=== PATIENT | female | born 1980 | race Caucasian/White ===

== ENCOUNTER 2018-12-10 05:57 | Inpatient (IN) ==
[2018-12-10] MEDS ORDERED: PEPCID IV PRN (05:59)
[2018-12-10] MEDS ORDERED: ZOFRAN IV PRN (05:59)
[2018-12-10] MEDS ORDERED: STADOL IV PRN (05:59)
[2018-12-10] MEDS ORDERED: PEPCID PO ONE (05:59)
[2018-12-10] MEDS ORDERED: KEFZOL 1 GM/D5W 1 GM/50 ML IVPB IV PRN (05:59)
[2018-12-10] MEDS ORDERED: REGLAN PO ONE (05:59)
[2018-12-10] MEDS ORDERED: TYLENOL PO PRN (05:59)
[2018-12-10] MEDS ORDERED: PEPCID PO PRN (05:59)
[2018-12-10] MEDS ORDERED: SODIUM CHLORIDE 0.9% INJ SCH (06:00)
[2018-12-10] MEDS ORDERED: PITOCIN 10 UNITS/NS 1,000 ML IV SCH (06:00)
[2018-12-10] MEDS ORDERED: AMPICILLIN 2 GM/NS 2 GM/100 ML IVPB IV ONE (06:03)
[2018-12-10] MEDS ORDERED: PITOCIN 30 UNITS/NS 30 UNIT/500 ML IV.SOLN IV SCH ×2 (06:15→16:00)
[2018-12-10] MEDS: LR 1,000 ML IV SCH ×3 (06:34→08:48)
[2018-12-10 07:27] LABS: BASO# 0.04 X1000 (0.0-0.2); BASO% 0.4 % (0.0-0.8); EOS# 0.09 X1000 (0.0-0.7); EOS% 0.8 % (0.0-10.0); HEMATOCRIT 31.5 % (37.0-47.0); HEMOGLOBIN 10.6 g/dL (12.0-16.0); IMM GRAN# 0.25 X1000 (0.0-0.04); IMM GRAN% 2.3 % (0.0-0.5); LYMPH# 2.63 X1000 (1.2-3.4); LYMPH% 24.4 % (20.5-51.1); MCH 29.2 PG (27-31); MCHC 33.7 g/dL (33-37); MCV 86.8 FL (81-99); MONO# 0.72 X1000 (0.11-0.59); MONO% 6.7 % (1.7-9.3); MPV 10.5 FL (7.4-10.4); NEUT# 7.03 X1000 (1.4-6.5); NEUT% 65.4 % (42.2-75.2); PLT 288 X1000 (130-400); RBC 3.63 XMIL (4.2-5.4); RDW 14.1 % (11.5-14.5); WBC 10.76 X1000 (4.8-10.8)
[2018-12-10 07:50] LABS: URINE SOURCE VOIDED
[2018-12-10 07:57] LABS: BILIRUBIN URINE NEGATIVE (NEGATIVE); BLOOD URINE NEGATIVE (NEGATIVE); GLUCOSE URINE NEGATIVE (NEGATIVE); KETONE URINE TRACE mg/dL (NEGATIVE); LEUKOCYTES URINE 2+ (NEGATIVE); NITRITE URINE NEGATIVE (NEGATIVE); PROTEIN URINE TRACE mg/dL (NEGATIVE); SP GRAVITY URINE 1.015; UROBILINOGEN URINE 1 mg/dL
[2018-12-10 07:58] LABS: CLARITY CLEAR (CLEAR); COLOR YELLOW
[2018-12-10] MEDS ORDERED: FENTANYL-BUPIV-NS 2 MCG-0.1% 200 ML EPIDURAL PRN (08:02)
[2018-12-10 08:05] LABS: UR AMPHETAMINES QUAL NONE DETECTED (NONE DETECT); UR BARBITUATES QUAL NONE DETECTED (NONE DETECT); UR BENZODIAZEPIN QUAL NONE DETECTED (NONE DETECT); UR CANNABINOIDS QUAL NONE DETECTED (NONE DETECT); UR COCAINE QUAL NONE DETECTED (NONE DETECT); UR METHADONE QUAL NONE DETECTED (NONE DETECT); UR METHAMPHETAMINE QUAL NONE DETECTED (NONE DETECT); UR OPIATES QUAL NONE DETECTED (NONE DETECT); UR OXYCODONE QUAL NONE DETECTED (NONE DETECT); UR PCP QUAL PRESUMPTIVE POSITIVE (NONE DETECT); UR PROPOXYPHENE QUAL NONE DETECTED (NONE DETECT); UR TCA QUAL NONE DETECTED (NONE DETECT)
[2018-12-10] MEDS ORDERED: NAROPIN 0.2% INJ ONE (08:15)
[2018-12-10] MEDS: AMPICILLIN 1 GM/NS 1 GM/50 ML IVPB IV SCH ×2 (10:35→14:32)
--- NOTE | 2018-12-10 11:19 | HISTORY AND PHYSICAL ---
HISTORY OF PRESENT ILLNESS: Patient is a 38-year-old white female G5, P2, A2 who is admitted today for induction of labor at 39 and 2/7ths weeks. care is significant for rubella non immune, group B strep culture positive on the urine early in , and restless legs syndrome during necessitating treatment with [place]. Also, patient has an IUD in place. PAST MEDICAL HISTORY: Unremarkable. PAST SURGICAL HISTORY: Tonsillectomy and D and C x2. PAST OB HISTORY: G5, P2. Spontaneous vaginal delivery x2. Spontaneous AB x1. Elective AB x1. DIGITAL DATA ANALYST HISTORY: Menarche at age 16. FAMILY HISTORY: Significant for heart disease. REVIEW OF SYSTEMS: All systems reviewed and noncontributory. SOCIAL HISTORY: Tobacco use of 1 pack per day. Alcohol use none. ALLERGIES: No known drug allergies. MEDICATIONS: vitamins and [place] 5 as needed for restless leg pain. PHYSICAL EXAMINATION: VITAL SIGNS: Height 5 feet 2 inches. Weight 197 pounds. Temperature 97.6 degrees, blood pressure 109/68, pulse of 91, and respirations 20. heart rate 150s with positive accelerations. HEENT: Pupils equal, round, and reactive to light and accommodation. Extraocular movements intact. Oropharynx clear. NECK: Supple. No thyromegaly. LUNGS: Clear to auscultation. HEART: Regular rate and rhythm. ABDOMEN: Gravid and nontender. PELVIC: On pelvic exam, cervix was dilated 2 cm, 60% effaced, -2 station. Vertex presentation noted. EXTREMITIES: No clubbing, cyanosis, or edema noted. DTRs were 1+ bilaterally. ASSESSMENT AND PLAN: 39 and 2/7ths weeks gestation with favorable cervix for induction of labor. Patient's rubella status is nonimmune and will receive vaccination after delivery. Group B strep positive on urine cultures. She will be treated with prophylactic antibiotics during labor course, and also will retrieve IUD after delivery. cc: Jovan Thorne III, MD
[2018-12-10] MEDS ORDERED: XYLOCAINE-MPF 1% INJ PRN ×2 (14:06→15:46)
[2018-12-10] MEDS ORDERED: MINERAL OIL ONE (14:08)
[2018-12-10] MEDS ORDERED: HYDROXYZINE IM PRN (15:46)
[2018-12-10] MEDS ORDERED: BENADRYL IV PRN (15:46)
[2018-12-10] MEDS ORDERED: ATARAX PO PRN (15:46)
[2018-12-10] MEDS ORDERED: AMBIEN PO PRN (15:46)
[2018-12-10] MEDS ORDERED: PERI MEDS (DERMOPLAST/NUPERCAINAL/TUCKS) MISC PRN (15:46)
[2018-12-10] MEDS ORDERED: CYTOTEC PO PRN (15:46)
[2018-12-10] MEDS ORDERED: BOOSTRIX VACCINE IM ONE (15:46)
[2018-12-10] MEDS ORDERED: MINERAL OIL PO PRN (15:46)
[2018-12-10] MEDS ORDERED: PITOCIN IM PRN (15:46)
[2018-12-10] MEDS ORDERED: BENADRYL PO PRN (15:46)
[2018-12-10] MEDS ORDERED: M-M-R II VACCINE SUBQ ONE (15:46)
[2018-12-10] MEDS ORDERED: PITOCIN 20 UNITS/NS 20 UNITS/1,000 ML IV.SOLN IV SCH (16:00)
[2018-12-10] MEDS: MOTRIN PO PRN (17:26)
--- NOTE | 2018-12-10 19:37 | OPERATIVE NOTE ---
PROCEDURE DATE: 12/10/2018 DELIVERY NOTE: Patient progressed to complete and pushing, and had spontaneous vaginal delivery of a female infant, 7 pounds 5 ounces, with Apgars of 9 and 9 at 1527 on 12/10/2018, over a 1st degree right side vaginal sidewall laceration. Cord blood sample was obtained at this time. Placenta was then delivered intact with a 3 vessel cord. A Mirena IUD was then removed from the uterus after uterine exploration. The right vaginal sidewall laceration repaired with 3-0 chromic in running fashion. Estimated blood loss was 150 mL. Anesthesia was epidural. All counts were correct x3. cc: Jovan Thorne III, MD
[2018-12-10] MEDS: PERICOLACE PO SCH (21:28)
[2018-12-10] MEDS: NORCO-10 PO PRN (23:50)
[2018-12-11 06:16] LABS: HEMATOCRIT 29.8 % (37.0-47.0); HEMOGLOBIN 9.8 g/dL (12.0-16.0); LYMPH% 27.1 % (20.5-51.1); MCH 28.7 PG (27-31); MCHC 32.9 g/dL (33-37); MCV 87.4 FL (81-99); MONO% 8.7 % (1.7-9.3); MPV 10.5 FL (7.4-10.4); NEUT% 60.5 % (42.2-75.2); PLT 245 X1000 (130-400); RBC 3.41 XMIL (4.2-5.4); RDW 14.3 % (11.5-14.5); WBC 10.44 X1000 (4.8-10.8)
[2018-12-11 06:17] LABS: BASO# 0.04 X1000 (0.0-0.2); BASO% 0.4 % (0.0-0.8); EOS# 0.15 X1000 (0.0-0.7); EOS% 1.4 % (0.0-10.0); IMM GRAN% 1.9 % (0.0-0.5); LYMPH# 2.83 X1000 (1.2-3.4); MONO# 0.91 X1000 (0.11-0.59); NEUT# 6.31 X1000 (1.4-6.5)
[2018-12-11] MEDS: MOTRIN PO PRN ×2 (06:32→13:48)
[2018-12-11] MEDS: NORCO-10 PO PRN (06:32)
--- NOTE | 2018-12-11 07:16 | OB/GYN PROGRESS NOTE ---
Progress Note OB - . Patient Problems: Current Active Problems Problem Status Onset (spontaneous vaginal delivery) Acute Elective induction of labor planned Acute OB Progress Note: Vital Signs - 24 hr 12/10/18 07:20 12/10/18 10:56 12/10/18 14:41 Temperature 97.6 F 97.8 F 98.4 F Pulse Rate 91 H 92 H 82 Respiratory Rate 20 20 20 Blood Pressure 109/60 111/58 112/57 Blood Pressure [Left Arm] O2 Sat by Pulse Oximetry 96 98 98 12/10/18 15:45 12/10/18 15:55 12/10/18 16:05 Temperature 98.1 F Pulse Rate 82 81 87 Respiratory Rate 20 20 20 Blood Pressure Blood Pressure [Left Arm] 135/75 112/60 112/60 O2 Sat by Pulse Oximetry 95 98 99 12/10/18 16:15 12/10/18 16:25 12/10/18 16:35 Temperature Pulse Rate 80 86 74 Respiratory Rate 20 20 20 Blood Pressure Blood Pressure [Left Arm] 108/68 104/67 111/68 O2 Sat by Pulse Oximetry 100 98 99 12/10/18 16:45 12/10/18 17:15 12/10/18 19:39 Temperature 97.2 F L 97.0 F L Pulse Rate 72 77 81 Respiratory Rate 20 20 20 Blood Pressure 121/59 120/65 106/51 Blood Pressure [Left Arm] 121/59 O2 Sat by Pulse Oximetry 99 99 97 12/10/18 23:44 12/11/18 04:23 Temperature 97.2 F L 96.8 F L Pulse Rate 73 Respiratory Rate 20 18 Blood Pressure 126/64 104/56 Blood Pressure [Left Arm] O2 Sat by Pulse Oximetry 97 98 Laboratory Results - last 24 hr 12/10/18 12/10/18 12/10/18 06:34 06:34 07:25 WBC 10.76 RBC 3.63 L Hgb 10.6 L Hct 31.5 L MCV 86.8 MCH 29.2 MCHC 33.7 RDW Std Deviation 14.1 Plt Count 288 MPV 10.5 H Immature Gran % (Auto) 2.3 H Neut % (Auto) 65.4 Lymph % (Auto) 24.4 [place] % (Auto) 6.7 Eos % (Auto) 0.8 Baso % (Auto) 0.4 Immature Gran # (Auto) 0.25 H Neut # (Auto) 7.03 H Lymph # (Auto) 2.63 [place] # (Auto) 0.72 H Eos # (Auto) 0.09 Baso # (Auto) 0.04 Urine Source Urine Color Urine Clarity Urine pH Ur Specific [place] Urine Protein Urine Ketones Urine Blood Urine Nitrite Urine Bilirubin Urine Urobilinogen Urine WBC Urine Glucose Urine Opiates Screen NONE DETECTED Ur Oxycodone Screen NONE DETECTED Urine Methadone Screen NONE DETECTED U Propoxyphene Qual NONE DETECTED Ur Barbituates Screen NONE DETECTED Ur Tricyclics Screen NONE DETECTED Ur Phencyclidine Scrn PRESUMPTIVE POSITIVE A Ur Amphetamines Screen NONE DETECTED U Methamphetamines Scrn NONE DETECTED U Benzodiazepines Scrn NONE DETECTED Urine Cocaine Screen NONE DETECTED U Cannabinoids Screen NONE DETECTED RPR NON-REACTIVE 12/10/18 12/11/18 07:25 05:38 WBC 10.44 RBC 3.41 L Hgb 9.8 L Hct 29.8 L MCV 87.4 MCH 28.7 MCHC 32.9 L RDW Std Deviation 14.3 Plt Count 245 MPV 10.5 H Immature Gran % (Auto) 1.9 H Neut % (Auto) 60.5 Lymph % (Auto) 27.1 [place] % (Auto) 8.7 Eos % (Auto) 1.4 Baso % (Auto) 0.4 Immature Gran # (Auto) 0.20 H Neut # (Auto) 6.31 Lymph # (Auto) 2.83 [place] # (Auto) 0.91 H Eos # (Auto) 0.15 Baso # (Auto) 0.04 Urine Source VOIDED Urine Color YELLOW Urine Clarity CLEAR Urine pH 7.0 Ur Specific [place] 1.015 Urine Protein TRACE A Urine Ketones TRACE Urine Blood NEGATIVE Urine Nitrite NEGATIVE Urine Bilirubin NEGATIVE Urine Urobilinogen 1 Urine WBC 2+ A Urine Glucose NEGATIVE Urine Opiates Screen Ur Oxycodone Screen Urine Methadone Screen U Propoxyphene Qual Ur Barbituates Screen Ur Tricyclics Screen Ur Phencyclidine Scrn Ur Amphetamines Screen U Methamphetamines Scrn U Benzodiazepines Scrn Urine Cocaine Screen U Cannabinoids Screen RPR Pt doing well Pain controlled minimal lochia bottlefeeding desires an IUD Vitals as above Gen: AAOx3 NAD CV: RRR no g/m/r Lungs: CTAB no w/r/r Abd: +BS soft Nt/ND fundus firm at u-1 Ext: no c/c/e Labs H/H 9.8/29.8 A: PPD#1 s/p P: Cont pp mgmt
[2018-12-11] MEDS: NORCO-5 PO PRN ×3 (12:14→20:22)
[2018-12-11] MEDS: PERICOLACE PO SCH (20:22)
[2018-12-12] MEDS: NORCO-5 PO PRN ×3 (02:08→14:32)
[2018-12-12] MEDS: MOTRIN PO PRN ×2 (02:08→14:32)
[2018-12-12 07:46] VITALS: BP 128/79
[2018-12-12] MEDS ORDERED: FERROUS SULFATE PO SCH (09:00)
[2018-12-12] MEDS ORDERED: PNEUMOVAX 23 IM ONE (09:15)
--- NOTE | 2018-12-12 09:37 | OB/GYN PROGRESS NOTE ---
Progress Note OB - . Patient Problems: Current Active Problems Problem Status Onset (spontaneous vaginal delivery) Acute Elective induction of labor planned Acute OB Progress Note: Vital Signs - 24 hr 12/11/18 12:21 12/11/18 15:46 12/11/18 20:13 Temperature 96.7 F L 96.9 F L 96.6 F L Pulse Rate 73 81 89 Respiratory Rate 18 18 20 Blood Pressure 128/80 121/62 125/69 O2 Sat by Pulse Oximetry 100 99 97 12/12/18 02:02 12/12/18 07:25 Temperature 96.7 F L 97.8 F Pulse Rate 79 64 Respiratory Rate 18 18 Blood Pressure 123/60 128/79 O2 Sat by Pulse Oximetry 97 100 S: Patient without complaints. Denied fever, chills, N/V, SOB, or chest pain. Voiding without difficulty. +BM. Lochia scant. Formula-feeding by choice. Desires LARC at her visit. O: Gen: NAD CV: RRR Pulm: CTAB; no rhonchi, wheezing, or rales Abd: soft, non-TTP, non-distended; fundus firm and below umbilicus Ext: no LE TTP Labs: Laboratory Tests 12/10/18 12/10/18 12/10/18 06:34 06:34 07:25 WBC 10.76 RBC 3.63 L Hgb 10.6 L Hct 31.5 L MCV 86.8 MCH 29.2 MCHC 33.7 RDW Std Deviation 14.1 Plt Count 288 MPV 10.5 H Immature Gran % (Auto) 2.3 H Neut % (Auto) 65.4 Lymph % (Auto) 24.4 [place] % (Auto) 6.7 Eos % (Auto) 0.8 Baso % (Auto) 0.4 Immature Gran # (Auto) 0.25 H Neut # (Auto) 7.03 H Lymph # (Auto) 2.63 [place] # (Auto) 0.72 H Eos # (Auto) 0.09 Baso # (Auto) 0.04 Urine Source Urine Color Urine Clarity Urine pH Ur Specific [place] Urine Protein Urine Ketones Urine Blood Urine Nitrite Urine Bilirubin Urine Urobilinogen Urine WBC Urine Glucose Urine Opiates Screen NONE DETECTED Ur Oxycodone Screen NONE DETECTED Urine Methadone Screen NONE DETECTED U Propoxyphene Qual NONE DETECTED Ur Barbituates Screen NONE DETECTED Ur Tricyclics Screen NONE DETECTED Ur Phencyclidine Scrn PRESUMPTIVE POSITIVE A Ur Amphetamines Screen NONE DETECTED U Methamphetamines Scrn NONE DETECTED U Benzodiazepines Scrn NONE DETECTED Urine Cocaine Screen NONE DETECTED U Cannabinoids Screen NONE DETECTED RPR NON-REACTIVE 12/10/18 12/11/18 07:25 05:38 WBC 10.44 RBC 3.41 L Hgb 9.8 L Hct 29.8 L MCV 87.4 MCH 28.7 MCHC 32.9 L RDW Std Deviation 14.3 Plt Count 245 MPV 10.5 H Immature Gran % (Auto) 1.9 H Neut % (Auto) 60.5 Lymph % (Auto) 27.1 [place] % (Auto) 8.7 Eos % (Auto) 1.4 Baso % (Auto) 0.4 Immature Gran # (Auto) 0.20 H Neut # (Auto) 6.31 Lymph # (Auto) 2.83 [place] # (Auto) 0.91 H Eos # (Auto) 0.15 Baso # (Auto) 0.04 Urine Source VOIDED Urine Color YELLOW Urine Clarity CLEAR Urine pH 7.0 Ur Specific [place] 1.015 Urine Protein TRACE A Urine Ketones TRACE Urine Blood NEGATIVE Urine Nitrite NEGATIVE Urine Bilirubin NEGATIVE Urine Urobilinogen 1 Urine WBC 2+ A Urine Glucose NEGATIVE Urine Opiates Screen Ur Oxycodone Screen Urine Methadone Screen U Propoxyphene Qual Ur Barbituates Screen Ur Tricyclics Screen Ur Phencyclidine Scrn Ur Amphetamines Screen U Methamphetamines Scrn U Benzodiazepines Scrn Urine Cocaine Screen U Cannabinoids Screen RPR A&P: 38yo s/p at 39w2d: 1. PPD#2- No concerns. Discharge home today and f/u in 4-6 weeks. precautions given. 2. Rubella non-immune- MMR booster 3. UDS positive PCP- -SW consultation prior to discharge- SW contacted 4. Restless leg syndrome- -Treated with [place] 5mg per H&P -[employer] search done: [place] 5mg filled from 09/2018 to 11/2018. Prior to that, patient filled Adderall 5. Hep C AB reactive -Patient to f/u with PCP
--- NOTE | 2018-12-12 14:11 | DISCHARGE SUMMARY ---
ADMISSION DATE: 12/10/2018 DISCHARGE DATE: 12/12/2018 DISCHARGE DIAGNOSIS: 1. A 38-year-old 5, para 3-0-2-3 status post spontaneous vaginal delivery at 39 weeks 2 days. 2. Rubella nonimmune - MMR booster. 3. Urine drug screen positive for phencyclidine - Social Work consultation . 4. History of restless leg syndrome - treated with [place] 5 mg. 5. Hepatitis C antibody reactive - recommend to follow up with primary care physician. HOSPITAL COURSE: This is a 38-year-old now G 5, P 3-0-2-3 that was admitted for a scheduled elective induction of labor. This is a patient of Dr. Thorne. The patient's labor course was unremarkable. She had a spontaneous vaginal delivery of a live female infant on 12/10/2018, weight 7 pounds 5 ounces. Of note, the patient had a IUD present during her . This was subsequently removed immediately after delivery of baby and was found to be intact per report. course was completely without complications. The patient subsequently discharged on day number 2. The patient formula feeding, desires LARC for contraception. LABORATORY: Predelivery hemoglobin and hematocrit 10.6/31.5. Postdelivery hemoglobin and hematocrit 9.8/29.8, platelet count 245. DISCHARGE DIET: Regular. DISCHARGE DISPOSITION: Stable. DISCHARGE INSTRUCTION: Routine discharge instruction was given. The patient to follow up outpatient in approximately 4-6 weeks. DISCHARGE MEDICATIONS: [place] 5 mg (dispense #30), Motrin, Colace, iron- all prescribed by Dr. Thorne. cc: MD CORIN Yanes III
== END 2018-12-12 16:50 | disposition home or self-care (01) | DRG 806 ==
LOC: P.LD 05:57
PROVIDERS: ADMIT Obstetrics & Gynecology; ATTEND Obstetrics & Gynecology
CPT/HCPCS: 80104; 80301; 80305; 81003; 85025; 86592; 90707; 90732; 99999; A9270; G0431; G0434; G0477; J0290; J2590; J2795; J7120